=== PATIENT | female | born 1975 | race Caucasian/White ===

== ENCOUNTER 2021-04-14 16:03 | Emergency (ER) | payer OTHER, SELFPAY ==
--- NOTE | ~2021-04-14 | XR_ITS ---
EXAMINATION: [id number] INDICATION: Left rib pain after fall TECHNIQUE: A frontal view of the chest and 3 views of the left ribs were obtained. COMPARISON: None. FINDINGS: The lungs are free of acute opacities. There is no pleural effusion or pneumothorax. The ca rdiomediastinal silhouette is normal. The visualized osseous structures are unremarkable. No displace d rib fracture is identified. IMPRESSION: 1. No acute cardiopulmonary abnormality or evidence of displaced rib fracture. Reviewed, dictated and finalized at location F. NG MANAGER
[2021-04-14 16:10] VITALS: BP 143/85; PULSE 81; RESP 14; TEMP 36.4; O2SAT 100
[2021-04-14 16:39] VITALS: BP 142/76; PULSE 80; RESP 18; O2SAT 100
--- NOTE | 2021-04-14 16:47 | ED.GENADULT ---
HPI - General Adult General Chief complaint: Unspecified Stated complaint: possible broken rib Time Seen by Provider: 04/14/21 16:32 History of Present Illness HPI narrative: 45-year-old female presenting to the ED for evaluation of left rib pain. Patient was in her car and reaching into the back when she slipped causing her to fall and injure her left lower ribs. Patient states this occurred approximately 1 week ago. Patient states she felt like her pain had been improving but then she felt that the pain was worsening again today. Patient does report pain with movement. Patient denies any shortness of breath. Related Data Allergies Allergy/AdvReac Type Severity Reaction Status Date / Time No Known Allergies Allergy Verified 04/14/21 16:12 Review of Systems Review of Systems: CONSTITUTIONAL: Denies fever, chills, or sweats. EYES: Denies visual changes, redness, or discharge. ENT: Denies rhinorrhea, congestion, sore throat, or otalgia. CARDIOVASCULAR: Left lower rib pain RESPIRATORY: Denies cough or dyspnea. GASTROINTESTINAL: Denies abdominal pain, nausea, vomiting, or diarrhea. GENITOURINARY: Denies dysuria or hematuria. SKIN: Denies rash or itching. MUSCULOSKELETAL: Denies back pain, joint pain, or myalgia. NEUROLOGIC: Denies headache, numbness, or weakness. PSYCHIATRIC: Denies anxiety or depression. Exam Narrative: APPEARANCE: Well appearing, no pain in distress, well-nourished. HEAD: normocephalic, atraumatic. EYES: PERRLA/EOMI, conjunctivae clear. NOSE: Normal no drainage EARS:TMS clear with good light reflex. THROAT: Pharynx clear, no exudate. NECK: Supple. No adenopathy, no masses. RESPIRATORY: Airway patent, respirations nonlabored. Clear to auscultation bilaterally, no rales, rhonchi, wheezing. CARDIOVASCULAR: Regular rate and rhythm without murmurs rubs or gallops. ABDOMINAL: Soft, nontender, nondistended, normal bowel sounds MUSCULOSKELETAL: Patient does have reproducible left lower rib pain just inferior to her left breast. Tenderness is isolated to the rib. Patient has no abdominal tenderness to palpation NEURO: Alert. Cranial nerves II through XII intact. Good gait. Good coordination SKIN: Warm, dry. Normal Color PSYCHIATRIC: Normal affect/mood. Course Course Emergency Course: Patient was updated on the results of her x-rays and plan for treatment at home. Patient states she already does have an incentive spirometer at home. Patient was comfortable with the plan for discharge and close follow-up. All questions and concerns were addressed. Patient was well-appearing and in no distress at time of discharge from the emergency department Vital Signs Vital signs: Vital Signs Temperature 97.6 F 04/14/21 16:10 Pulse Rate 81 04/14/21 16:10 Respiratory Rate 14 04/14/21 16:10 Blood Pressure 143/85 H 04/14/21 16:10 Pulse Oximetry 100 04/14/21 16:10 Temperature 97.6 F 04/14/21 16:10 Pulse Rate 80 04/14/21 16:39 Respiratory Rate 18 04/14/21 16:39 Blood Pressure 142/76 H 04/14/21 16:39 Pulse Oximetry 100 04/14/21 16:39 Medical Decision Making Vital Signs Vital Signs: Vital Signs Temperature 97.6 F 04/14/21 16:10 Pulse Rate 81 04/14/21 16:10 Respiratory Rate 14 04/14/21 16:10 Blood Pressure 143/85 H 04/14/21 16:10 Pulse Oximetry 100 04/14/21 16:10 Temperature 97.6 F 04/14/21 16:10 Pulse Rate 80 04/14/21 16:39 Respiratory Rate 18 04/14/21 16:39 Blood Pressure 142/76 H 04/14/21 16:39 Pulse Oximetry 100 04/14/21 16:39 Discharge Plan Discharge Clinical Impression: Contusion of rib on left side Patient Disposition: Home, Self-Care Condition: Stable Instructions: Antibiotic Form, How to Use an Incentive Spirometer (ED), Rib Contusion (ED) Additional Instructions: Tylenol and ibuprofen for pain control. Tramadol as needed for additional pain control. Incentive spirometer as directed. Have close follow-up with your primary care ph
== END 2021-04-14 18:21 | disposition home or self-care (01) ==
PROVIDERS: Emergency Provider Emergency Medicine
DX: S20.219A Contusion of unspecified front wall of thorax, initial encounter (principal); W22.8XXA Striking against or struck by other objects, initial encounter
CPT/HCPCS: 71101; 99283

== ENCOUNTER 2023-02-26 18:10 | Emergency (ER) | payer OTHER, SELFPAY ==
--- NOTE | 2023-02-26 18:17 | ED.GENADULT ---
HPI - General Adult General Chief complaint: Upper Respiratory Infection Stated complaint: Upper respiratory infection Time Seen by Provider: 02/26/23 18:17 Source: patient, RN notes reviewed and old records reviewed Mode of arrival: ambulatory Limitations: no limitations History of Present Illness HPI narrative: 47-year-old female presents to [facility] with complaint of cough congestion, sinus pressure, headache approximately 2 weeks. Patient states sinus drainage is green in color. Patient denies nausea vomiting diarrhea, fevers chills, myalgias, shortness of breath. Patient taking ibuprofen as needed for pain. Related Data Allergies Allergy/AdvReac Type Severity Reaction Status Date / Time No Known Allergies Allergy Verified 02/26/23 18:14 Review of Systems Constitutional: Constitutional: Reports no additional constitutional complaints Eyes: Eyes: Reports no additional eye complaints ENT: Reports system reviewed and no additional complaints, except as documented, Reports nasal congestion, Reports nasal discharge, Reports sinus pain and Reports sinus pressure Cardiovascular: Cardiovascular: Reports no additional cardiovascular complaints Respiratory: Respiratory: Reports no additional respiratory complaints, Reports chest congestion and Reports cough Neurologic: Reports system reviewed and no additional complaints, except as documented [facility] Past Medical History Medical History Seasonal allergies Comments At the time of my signature, I reviewed and agree with the nursing past medical, surgical, social, and family history. There is no relevant family history pertinent to the patient complaint. Exam Const: General: cooperative, healthy appearing, no acute distress and well nourished Nutritional Appearance: well nourished Orientation/consciousness: patient oriented x3 Limitations: no limitations HENMT: Head: normal to inspection and normocephalic Ears: external ears normal, TM's normal bilaterally, mastoids normal and Abnormal EAC present Face/Nose/Sinus: sinus tenderness and Facial tenderness on exam of face and sinuses Face and sinus: normal facial exam and sinus tenderness Mouth: Yes Normal oral and palatal mucosa present, Yes oropharynx normal and Yes moist mucous membranes Throat: posterior oropharynx normal, tonsils normal, uvula midline and no uvular edema Eyes: General: appearance normal, both eyes and all related structures Sclera: sclerae normal Pupils: Equal, round and reactive pupils present Resp: Effort & Inspection: normal respiratory effort, able to speak in complete sentences, no audible wheezes, no cough, no respiratory distress and no retractions Auscultation: clear to auscultation bilaterally, no crackles, no rales, no rhonchi and no wheezes Cardio: Rate: regular rate Rhythm: regular rhythm Skin: General skin exam: normal color and no rashes or lesions noted Neuro: General: patient oriented x3 Cranial nerves: Yes Equal, round and reactive pupils present Psych: Appearance: grossly normal Course Course Emergency Course: Some parts of this dictation were generated by voice recognition software and may contain typographical and/or grammatical inaccuracies. Level of Care: Express Care Visit Vital Signs Vital signs: Reviewed Medical Decision Making MDM Narrative Medical decision making narrative: Patient complaining cough with sinus congestion sinus pain pressure and green drainage for 2 weeks. Symptoms consistent with sinusitis. Treat patient with antibiotics and steroids. Patient comfortably sitting in room with no signs of acute distress, nontoxic appearing, vital signs stable, patient appropriate for discharge home and outpatient care. Patient to follow-up as needed. Differential Diagnosis Differential Diagnosis: Bacterial sinusitis, viral respiratory infection, rhinitis Medical Records Medical records
[2023-02-26 18:18] VITALS: BP 121/82; PULSE 92; RESP 16; TEMP 36.8; O2SAT 99
== END 2023-02-26 18:42 | disposition home or self-care (01) ==
PROVIDERS: Emergency Provider Registered Nurse
DX: J01.90 Acute sinusitis, unspecified (principal)
CPT/HCPCS: 99213; G0463